=== PATIENT | male | born 1940 | race Caucasian/White ===

== ENCOUNTER 2017-11-20 12:13 | Day surgery (SDC) | payer MEDICARE, OTHER ==
[~2017-11-20 12:13] MED LIST: ROCURONIUM 50 MG INJ; SOD CHLORIDE 0.9% 1,000 ML IV
[2017-11-20] MEDS ORDERED: FENTAnyl 50 MCG/ML VIAL ×2 (15:14→16:36)
[2017-11-20] MEDS: POLYMYXIN/BACITRACIN 1L IRRIG (15:15)
[2017-11-20] MEDS: CEFAZOLIN 2 GM/50 ML (PMX) 50 ML IVPB (15:28)
[2017-11-20] MEDS: BUPIVACAINE 0.5%/EPI (SDV) 30 ML INJ (16:09)
[2017-11-20] MEDS ORDERED: CEFAZOLIN 1 GM INJ (16:15)
[2017-11-20] MEDS ORDERED: LIDOCAINE 100 MG SYRINGE (16:15)
[2017-11-20] MEDS ORDERED: PROPOFOL 20 ML (16:15)
[2017-11-20] MEDS ORDERED: SUCCINYLCHOLINE CHLORIDE 100 MG/5 ML SYG IV (16:15)
[2017-11-20] MEDS ORDERED: SUGAMMADEX SODIUM 200 MG/2 ML VIAL IV (16:16)
[2017-11-20] MEDS ORDERED: METOCLOPRAMIDE 10 MG INJ IV (16:30)
[2017-11-20] MEDS ORDERED: DIPHENHYDRAMINE 50 MG INJ IV (16:30)
[2017-11-20] MEDS ORDERED: FENTAnyl 50 MCG/ML VIAL IV (16:30)
[2017-11-20] MEDS ORDERED: HYDROmorphONE (0.2 MG/ML) 10ML SYG IV (16:30)
[2017-11-20] MEDS ORDERED: ONDANSETRON 4 MG INJ (16:36)
[2017-11-20] MEDS: FENTAnyl 50 MCG/ML VIAL IV ×3 (16:45→17:05)
[2017-11-20] MEDS: ONDANSETRON 4 MG INJ IV (16:46)
[2017-11-20] MEDS: MEPERIDINE 25 MG INJ IV (16:57)
[2017-11-20] MEDS ORDERED: HYDROCODONE/APAP (10/325) TAB PO (17:30)
== END 2017-11-20 18:10 | disposition home or self-care (01) ==
LOC: SDS 12:13
DX: K40.30 Unilateral inguinal hernia, with obstruction, without gangrene, not specified as recurrent (principal)
CPT/HCPCS: 49507